=== PATIENT | male | born 1955 | race African-American/Black ===

== ENCOUNTER 2018-08-05 03:56 | Observation (INO) ==
[2018-08-05] MEDS ORDERED: Sod Chloride 0.9% Inj 1,000 ML IV.CONT SCH ×2 (04:15→05:45)
--- NOTE | 2018-08-05 04:22 | ED ---
HPI General Chief Complaint: Altered Mental Status Stated Complaint: Psy Time Seen by Provider: 08/05/18 03:58 Source: patient and EMS Mode of arrival: EMS Limitations: altered mental status History of Present Illness HPI narrative: The patient is a 62-year-old -[place] male who presents to the emergency department via EMS for altered mental status. According to EMS the patient has had increasing altered mental status over the last 4 days. EMS states the patient recently had a medication change, Seroquel, however, they are unsure if the changed occurred several weeks ago or a month ago. According to EMS the patient's heard a sound, when she woke up the patient was lying on the ground, apparently had fallen to the ground according to EMS. The patient did complain of neck pain, therefore, was placed in a cervical collar prior to arrival. The patient is oriented to name and place, but is a poor historian, only answers questions in one-word sentences. He does complain of neck pain but denies any headache. He also complains of lower back pain. The patient denies ingestion of any alcohol or illicit drugs. The patient denies any chest pain, shortness of breath, nausea, vomiting, or abdominal pain. He denies any dysuria. MD complaint: Reports altered mental status, confusion and decreased responsiveness Onset (ago): day(s) Timing confirmed by: spouse Severity: moderate Consistency of symptoms: waxing and waning and getting worse Context: Reports change in medication Associated symptoms: Reports other Treatments prior to arrival: Reports spinal immobilization Related Data Home Medications Medication Instructions Recorded Confirmed quetiapine [Seroquel] 200 mg PO BID 08/05/18 08/05/18 Allergies Allergy/AdvReac Type Severity Reaction Status Date / Time haloperidol Allergy Severe TOUNGE Verified 07/18/18 19:49 JOE Review of Systems ROS: all other systems reviewed are negative [facility] Social History Social History Substance History: No History of Abuse Second Hand Smoke Exposure: No Smoking Status: Former smoker Tobacco Type: Cigarettes How Often Do You Have a Drink Containing Alcohol: Monthly or less Recent Travel in [place] within the Last 8 Weeks: No Recent Out of Country Travel within the Last 8 Weeks: No Immunization History Tetanus Immunization: Unsure Exam Narrative Exam Narrative: GENERAL: Lethargic, eyes closed but opens to voice,, pleasant 62 -year-old male who appears his stated age and is in no acute respiratory distress. SKIN: Focused skin assessment warm/dry. HEAD: Atraumatic. Normocephalic. EYES: Pupils equal and round. 2 mm bilateral and reactive. ENT: No nasal bleeding or discharge. Poor dentition. NECK: Trachea midline. No JVD. Cervical collar in place. CARDIOVASCULAR: Regular rate and rhythm. No murmur appreciated. RESPIRATORY: No accessory muscle use. Clear to auscultation. Breath sounds equal bilaterally. GASTROINTESTINAL: Abdomen soft, non-tender, nondistended. MUSCULOSKELETAL: No obvious deformities. No clubbing. No cyanosis. No edema. Back: No tenderness of the midline of the thoracic spine, however, mild tenderness upon palpation of the mid lumbar spine. No obvious deformity or step -off. NEUROLOGICAL: Lethargic, slow to respond, but opens eyes to voice. Moves all 4 extremities. Oriented to person and place, however, gets the year wrong. Was able to tell me who the president was. PSYCHIATRIC: Appears confused. Course Initial Documented Vital Signs Temperature 98.5 F 08/05/18 04:02 Pulse Rate 80 08/05/18 04:02 Respiratory Rate 20 08/05/18 04:02 Blood Pressure 157/82 H 08/05/18 04:02 Pulse Oximetry 100 08/05/18 04:02 Last Documented Vital Signs Temperature 98.2 F 08/05/18 04:10 Pulse Rate 83 08/05/18 04:10 Respiratory Rate 20 08/05/18 04:10 Blood Pressure 155/80 H 08/05/18 04:10 Pulse Oximetry 100 08/05/18 04:29 Medical Decision Making [facility] Narrative Medical decision making narrative: IV was established, labs are drawn and sent, and the patient was placed on cardiac telemetry monitoring and continuous pulse oximetry monitoring. EKG was ordered and interpreted. CT of the brain and cervical spine were obtained. X-ray of the lumbar spine and chest x-ray were obtained. UA was sent to lab. CT of the brain and cervical spine revealed chronic changes but no acute findings. X-ray of the lumbar spine and chest x- ray are unremarkable. Laboratory evaluation is essentially unremarkable, no obvious reversible cause of the patient's delirium and altered mental status. The patient was reassessed at 5:20 AM, was sleeping, hard to arouse, was unable to ambulate. The patient's symptoms may be secondary to the Seroquel, he will be a 23-hour observation to see if he improves off of the medication. If he does improve at that time he will be able to be discharged. Medical Screen Exam Complete: Yes Emergency Medical Condition: Yes Differential Diagnosis Differential Diagnosis: UTI, subdural hemorrhage, elevated ammonia level, drug ingestion,Differential diagnosis includes medication side effect, delirium, Seroquel side effect, hyponatremia, pneumonia, cervical fracture, lumbar vertebral fracture, encephalitis, meningitis. Lab Data Lab results reviewed: Yes I reviewed the patient's lab results. Result diagrams: 08/05/18 04:20 08/05/18 04:20 Lab Results 08/05/18 08/05/18 08/05/18 Range/Units 04:20 04:20 04:20 WBC 5.2 (4.0-11.0) th/mm3 RBC 3.72 L (4.50-5.90) mil/mm3 Hgb 12.2 L (13.0-17.0) gm/dL Hct 36.3 L (39.0-51.0) % MCV 97.5 (80.0-100.0) fL MCH 32.8 (27.0-34.0) pg MCHC 33.7 (32.0-36.0) % RDW 14.0 (11.6-17.2) % Plt Count 179 (150-450) th/mm3 MPV 8.3 (7.0-11.0) fL Neut % (Auto) 44.4 (16.0-70.0) % Lymph % (Auto) 43.2 (9.0-44.0) % [place] % (Auto) 9.5 H (0.0-8.0) % Eos % (Auto) 2.3 (0.0-4.0) % Baso % (Auto) 0.6 (0.0-2.0) % Neut # (Auto) 2.3 (1.8-7.7) th/mm3 Lymph # (Auto) 2.2 (1.0-4.8) th/mm3 [place] # (Auto) 0.5 (0.0-0.9) th/mm3 Eos # (Auto) 0.1 (0.0-0.4) th/mm3 Baso # (Auto) 0.0 (0.0-0.2) th/mm3 WBC Differential . Differential Comment Auto diff final Sodium 143 (136-145) meq/L Potassium 3.9 (3.5-5.1) meq/L Chloride 108 H (98-107) meq/L Carbon Dioxide 27.4 (21.0-32.0) meq/L Anion Gap 8 (5-15) meq/L BUN 12 (7-18) mg/dL Creatinine 0.94 (0.60-1.30) mg/dL Estimated GFR Greater than 89 (>89) mL/min Random Glucose 115 H (74-106) mg/dL Calcium 8.5 (8.5-10.1) mg/dL Magnesium 2.4 (1.5-2.5) mg/dL Total Bilirubin 0.3 (0.2-1.0) mg/dL AST 16 (15-37) U/L ALT 22 (12-78) U/L Alkaline Phosphatase 64 (45-117) U/L Ammonia 30 (11-32) mcmol/L Total Creatine Kinase 158 (39-308) U/L Troponin I Less than 0.02 L (0.02-0.05) ng/mL Total Protein 6.3 L (6.4-8.2) g/dL Albumin 3.4 (3.4-5.0) g/dL TSH 3.060 (0.358-3.740) uIU/mL Urine Color (Yellw/Straw) Urine Clarity (Clear) Urine pH (5.0-8.5) Ur Specific [place] (1.002-1.035) Urine Protein (Neg-Trace) mg/dL Urine Glucose (UA) (Negative) mg/dL Urine Ketones (Negative) mg/dL Urine Occult Blood (Negative) Urine Nitrate (Negative) Urine Bilirubin (Negative) Urine Urobilinogen (Less than 2) mg/dL Ur Leukocyte Esterase (Negative) Urine RBC (0-3) /hpf Urine WBC (0-5) /hpf Urine Mucus (Occasional) /lpf Micro UA Comment Ur Microscopic Review Urine Culture Comments Urine Opiates Screen (Neg) Ur Barbiturates Screen (Neg) Ur Amphetamines Screen (Neg) U Benzodiazepines Scrn (Neg) Urine Cocaine Screen (Neg) U Cannabinoids Screen (Neg) Serum Alcohol Less than 3 (0-5) mg/dL 08/05/18 08/05/18 Range/Units 04:20 04:20 WBC (4.0-11.0) th/mm3 RBC (4.50-5.90) mil/mm3 Hgb (13.0-17.0) gm/dL Hct (39.0-51.0) % MCV (80.0-100.0) fL MCH (27.0-34.0) pg MCHC (32.0-36.0) % RDW (11.6-17.2) % Plt Count (150-450) th/mm3 MPV (7.0-11.0) fL Neut % (Auto) (16.0-70.0) % Lymph % (Auto) (9.0-44.0) % [place] % (Auto) (0.0-8.0) % Eos % (Auto) (0.0-4.0) % Baso % (Auto) (0.0-2.0) % Neut # (Auto) (1.8-7.7) th/mm3 Lymph # (Auto) (1.0-4.8) th/mm3 [place] # (Auto) (0.0-0.9) th/mm3 Eos # (Auto) (0.0-0.4) th/mm3 Baso # (Auto) (0.0-0.2) th/mm3 WBC Differential Differential Comment Sodium (136-145) meq/L Potassium (3.5-5.1) meq/L Chloride (98-107) meq/L Carbon Dioxide (21.0-32.0) meq/L Anion Gap (5-15) meq/L BUN (7-18) mg/dL Creatinine (0.60-1.30) mg/dL Estimated GFR (>89) mL/min Random Glucose (74-106) mg/dL Calcium (8.5-10.1) mg/dL Magnesium (1.5-2.5) mg/dL Total Bilirubin (0.2-1.0) mg/dL AST (15-37) U/L ALT (12-78) U/L Alkaline Phosphatase (45-117) U/L Ammonia (11-32) mcmol/L Total Creatine Kinase (39-308) U/L Troponin I (0.02-0.05) ng/mL Total Protein (6.4-8.2) g/dL Albumin (3.4-5.0) g/dL TSH (0.358-3.740) uIU/mL Urine Color Yellow (Yellw/Straw) Urine Clarity Clear (Clear) Urine pH 6.0 (5.0-8.5) Ur Specific [place] 1.009 (1.002-1.035) Urine Protein Negative (Neg-Trace) mg/dL Urine Glucose (UA) Negative (Negative) mg/dL Urine Ketones Negative (Negative) mg/dL Urine Occult Blood Small H (Negative) Urine Nitrate Negative (Negative) Urine Bilirubin Negative (Negative) Urine Urobilinogen 2.0 H (Less than 2) mg/dL Ur Leukocyte Esterase Negative (Negative) Urine RBC 1 (0-3) /hpf Urine WBC Less than 1 (0-5) /hpf Urine Mucus Few H (Occasional) /lpf Micro UA Comment Culture not ind Ur Microscopic Review Not Reportable Urine Culture Comments Culture not ind Urine Opiates Screen Neg (Neg) Ur Barbiturates Screen Neg (Neg) Ur Amphetamines Screen Neg (Neg) U Benzodiazepines Scrn Neg (Neg) Urine Cocaine Screen Neg (Neg) U Cannabinoids Screen Neg (Neg) Serum Alcohol (0-5) mg/dL Imaging Data Radiologist's impression: Cervical Spine CT 08/05/18 04:13 CONCLUSION: 1. An acute bony abnormality is not seen. 2. Status post fusion at the C4-C7 levels. 3. Moderate stenosis at the C3-C4 level. 4. Mild stenosis at the C2-C3 level 5. Mild anterior subluxation of C2 on C3. This is likely secondary to facet hypertrophy. Chest X-Ray 08/05/18 04:13 CONCLUSION: No acute cardiopulmonary process. Head CT 08/05/18 04:13 CONCLUSION: 1. No definite acute abnormality seen. 2. The density in the periventricular white matter likely related demyelination. This can be secondary to small vessel ischemic change. . Lumbar Spine X-Ray 08/05/18 04:13 CONCLUSION: Degenerative change. ECG Data EKG Prior to Arrival: No Attestation: I personally reviewed and interpreted this ECG as follows: Interpretation: EKG reveals normal sinus rhythm with a rate of 71. Inverted T wave in lead III. Discharge Plan Discharge Disposition Patient Disposition: 30 Still Patient Discharge Condition Condition: Stable Discharge Details Diagnosis: Altered mental status, Delirium Physicians Team ED Provider: Cesar Massey Primary Care Provider: UNKNOWN, Rxs /Orders / Referrals /Forms Prescriptions: No Action quetiapine [Seroquel] 200 mg Tablet 200 mg PO BID RF: 0 Discharge Interventions Interventions: Vital Signs Last Done: 08/05/18 04:10 Status ED Status: Pending Admission
[2018-08-05 04:29] LABS: Baso % (Auto) 0.6 % (0.0-2.0); Eos # (Auto) 0.1 th/mm3 (0.0-0.4); Eos % (Auto) 2.3 % (0.0-4.0); Hematocrit 36.3 % (39.0-51.0); Hemoglobin 12.2 gm/dL (13.0-17.0); Lymph # (Auto) 2.2 th/mm3 (1.0-4.8); Lymph % (Auto) 43.2 % (9.0-44.0); Mean Corpuscular HGB Conc 33.7 % (32.0-36.0); Mean Corpuscular Hemoglobin 32.8 pg (27.0-34.0); Mean Corpuscular Volume 97.5 fL (80.0-100.0); Mean Platelet Volume 8.3 fL (7.0-11.0); Mono # (Auto) 0.5 th/mm3 (0.0-0.9); Mono % (Auto) 9.5 % (0.0-8.0); Neut # (Auto) 2.3 th/mm3 (1.8-7.7); Neut % (Auto) 44.4 % (16.0-70.0); Platelet Count 179 th/mm3 (150-450); Red Blood Count 3.72 mil/mm3 (4.50-5.90); White Blood Count 5.2 th/mm3 (4.0-11.0)
[2018-08-05 04:37] LABS: Bilirubin,Urine Negative (Negative); Clarity,Urine Clear (Clear); Color,Urine Yellow (Yellw/Straw); Glucose,Urine (UA) Negative (Negative); Leukocyte Esterase,Urine Negative (Negative); Mucus,Urine Few /lpf (Occasional); Nitrite,Urine Negative (Negative); Specific Gravity,Urine 1.009 (1.002-1.035)
[2018-08-05 04:39] LABS: Amphetamine Screen,Urine Neg (Neg); Barbiturate Screen,Urine Neg (Neg); Cannabinoid Screen,Urine Neg (Neg); Cocaine Screen,Urine Neg (Neg)
[2018-08-05 04:47] LABS: Opiate Screen,Urine Neg (Neg)
[2018-08-05 04:50] LABS: Alanine Aminotransferase 22 U/L (12-78); Albumin 3.4 g/dL (3.4-5.0); Anion Gap 8 meq/L (5-15); Aspartate Aminotransferase 16 U/L (15-37); Blood Urea Nitrogen 12 mg/dL (7-18); Calcium 8.5 mg/dL (8.5-10.1); Carbon Dioxide 27.4 meq/L (21.0-32.0); Chloride 108 meq/L (98-107); Glomerular Filtration Rate Greater Than 89 mL/min (>89); Glucose,Random 115 mg/dL (74-106); Magnesium 2.4 mg/dL (1.5-2.5); Potassium 3.9 meq/L (3.5-5.1); Sodium 143 meq/L (136-145)
--- NOTE | 2018-08-05 04:54 | XR ---
EXAM DATE: 08/05/2018 4:13 AM EDT AGE/SEX: 62 years / Male INDICATIONS: Cough. CLINICAL DATA: This is the patient's initial encounter. Patient reports that signs and symptoms have been present for 1 day and indicates a pain score of 0/10. MEDICAL/SURGICAL HISTORY: None. None. COMPARISON: . FINDINGS: A single AP view of the chest demonstrates the lungs to be symmetrically aerated without evidence of mass, infiltrate or effusion. The cardiomediastinal contours are unremarkable. Osseous structures a re intact. There is an anterior cervical fusion plate present. CONCLUSION: No acute cardiopulmonary process. Electronically signed by: Aashish Mejía MD 08/05/2018 4:52 AM EDT
--- NOTE | 2018-08-05 04:55 | XR ---
EXAM DATE: 08/05/2018 4:13 AM EDT AGE/SEX: 62 years / Male INDICATIONS: Post fall, back pain. CLINICAL DATA: This is the patient's initial encounter. Patient reports that signs and symptoms have been present for 1 day and indicates a pain score of Nonresponsive. MEDICAL/SURGICAL HISTORY: None. Fusion, cervical. COMPARISON: No prior exams available for comparison. FINDINGS: The lumbar vertebral bodies are normal in height. They're normally aligned in the sagittal plane. The re is a minimal levocurvature of the lower lumbar spine. There are marginal osteophyte seen throughou t. There is minimal disc space narrowing at the right side of the L4-L5 disc level. The remaining dis c spaces appear normal height. There is facet hypertrophy at the L4-L5 and L5-S1 levels. The sacroili ac joints are intact. CONCLUSION: Degenerative change. Electronically signed by: Aashish Mejía MD 08/05/2018 4:53 AM EDT
[2018-08-05 05:00] LABS: Alkaline Phosphatase 64 U/L (45-117); Creatine Kinase 158 U/L (39-308); Total Protein 6.3 g/dL (6.4-8.2)
--- NOTE | 2018-08-05 05:02 | CT ---
EXAM DATE: 08/05/2018 4:16 AM EDT AGE/SEX: 62 years / Male INDICATIONS: Fall. Altered mental status. CLINICAL DATA: This is the patient's initial encounter. Patient reports that signs and symptoms have been present for 1 day and indicates a pain score of 5/10. MEDICAL/SURGICAL HISTORY: None. Fusion, cervical. RADIATION DOSE: 20.96 CTDI (mGy) COMPARISON: No prior exams available for comparison. TECHNIQUE: Contiguous axial images were obtained using helical multirow detector technique. The vol umetric data was post-processed with multiplanar reconstruction in oblique axial, sagittal, and coron al planes. Using automated exposure control and adjustment of the mA and/or kV according to patient s ize, radiation dose was kept as low as reasonably achievable to obtain optimal diagnostic quality hebert ges. DICOM format image data is available electronically for review and comparison. FINDINGS: Vertebrae: There is been fusion at the C4-C7 vertebral body levels. There is an anterior cervical fu stephanie plate extending from C4 through C7. There is near-complete bony fusion at the C4-C5, C5-C6 and C 6-C7 disc levels. There is some possible fusion at the facet joints at these levels. There is calcifi cation/ossification of ligamentum nuchae. Alignment: There is mild anterior subluxation of C2 on C3 in the order of 3 to 4 mm. C2-3: Again noted is the anterior subluxation of C2 on C3.The disc maintains its alignment with the superior aspect of C3 creating a bulge like configuration. There is mild narrowing of the thecal sac. The posterior disc margin appears intact. There is moderate facet hypertrophy being worse on the rig ht. The neural foramina are grossly patent. C3-4: The disc demonstrates loss of height. There is diffuse disc bulge causing a moderate impressio n on thecal sac. Prominent anterior marginal osteophytes are seen. There is uncovertebral hypertrophy . There is bilateral facet hypertrophy. There is narrowing of the neural foramina bilaterally. C4-5: The patient is status post fusion at this level. A significant impression on thecal sac is not seen. The neural foramina are patent bilaterally. C5-6: The patient is status post fusion at this level. A significant impression on thecal sac is not seen. The neural foramina are patent bilaterally. C6-7: The patient is status post fusion at this level. A significant impression on thecal sac is not seen. The neural foramina are patent bilaterally. C7-T1: The bony spinal canal is normal in size. No evidence of disc bulge or herniation. The neura l foramina are bilaterally patent. CONCLUSION: 1. An acute bony abnormality is not seen. 2. Status post fusion at the C4-C7 levels. 3. Moderate stenosis at the C3-C4 level. 4. Mild stenosis at the C2-C3 level 5. Mild anterior subluxation of C2 on C3. This is likely secondary to facet hypertrophy. Electronically signed by: Aashish Mejía MD 08/05/2018 5:00 AM EDT
--- NOTE | 2018-08-05 05:06 | CT ---
EXAM DATE: 08/05/2018 4:16 AM EDT AGE/SEX: 62 years / Male INDICATIONS: Fall. Altered mental status. CLINICAL DATA: This is the patient's initial encounter. Patient reports that signs and symptoms have been present for 1 day and indicates a pain score of 5/10. MEDICAL/SURGICAL HISTORY: None. Fusion, cervical. RADIATION DOSE: 66.34 CTDI (mGy) COMPARISON: No prior exams available for comparison. TECHNIQUE: CT of the head without contrast. Using automated exposure control and adjustment of the mA and/or kV according to patient size, radiation dose was kept as low as reasonably achievable to ob tain optimal diagnostic quality images. DICOM format image data is available electronically for revi ew and comparison. FINDINGS: Cerebrum: The ventricles are normal for age. There is low density in the periventricular white laney er being most around the frontal horn of the left lateral ventricle. No evidence of midline shift, ma ss lesion, hemorrhage or acute infarction. No extraaxial fluid collections are seen. Posterior Fossa: The cerebellum and brainstem are intact. The 4th ventricle is midline. The cerebe llopontine angle is unremarkable. Extracranial: The visualized portion of the orbits is intact. There is a 1.5 cm bony density seen in the posterior right ethmoid sinus region likely related to an osteoma. Skull: The calvaria is intact. No evidence of skull fracture. CONCLUSION: 1. No definite acute abnormality seen. 2. The density in the periventricular white matter likely related demyelination. This can be seconda ry to small vessel ischemic change. . Electronically signed by: Aashish Mejía MD 08/05/2018 5:04 AM EDT
[2018-08-05] MEDS ORDERED: Bisacodyl 10 MG Supp RECTAL PRN (05:41)
[2018-08-05] MEDS ORDERED: Acetaminophen 325 MG Tablet PO PRN (05:41)
[2018-08-05] MEDS ORDERED: Sodium Chloride 0.9% 2 ML Flush PRN IV.FLUSH (05:53)
[2018-08-05] MEDS ORDERED: Heparin - SQ 10,000 UNITS/ML Vial SQ SCH (06:00)
--- NOTE | 2018-08-05 08:06 | P.HP ---
History of Present Illness Service: Hospitalist Primary Care Physician: UNKNOWN History of Present Illness: Mr. Massey is a 62-year-old -[place] male presents to the emergency department due to altered mental status that has been worsening over the last 4 days. Patient also had a fall at home. He denies any chest pain, shortness of breath, fever or chills. He denies any lightheadedness or dizziness prior to his fall. He takes Seroquel 200 mg twice a day. He attributes his fall to too much Seroquel. At the time of this interview on 08/05/2018, patient is ambulating well. He is alert oriented x3. He would like to go home. He denies any acute concerns. He denies any changes in bowel or bladder habits. No cough, abdominal pain. Past medical history: Bipolar disorder. Past surgical history: No significant past surgeries. Social history: Patient smokes cigarettes. He is trying to quit but finds it hard to do. Family history: Mother had hypertension and father had heart attack. Review of Systems All other systems reviewed negative except as stated in [facility] - History History Provided By: Patient - Medical History Medical History: Medical History (Last Reviewed 08/05/18 @ 04:06 by Syl White) Bipolar disorder - Tobacco History Second Hand Smoke Exposure: No Smoking Status: Former smoker Tobacco Type: Cigarettes - Alcohol History How Often Do You Have a Drink Containing Alcohol: Monthly or less - Substance Use History Substance History: No History of Abuse - Travel History Recent Travel in the [place] Within the Last 8 Weeks: No Recent Travel Out of the Country Within the Last 8 Weeks: No - Immunization History Tetanus Immunization: Unsure Medications and Allergies Active Medications: Active Medications Acetaminophen (Tylenol) 650 mg PO Q4H PRN PRN Reason: Temp > 100.4 Al Hydroxide/Mg Hydroxide (Milk Of Magnesia Liq) 30 ml PO Q12H PRN PRN Reason: Mild Constipation Bisacodyl (Dulcolax Supp) 10 mg RECTAL DAILY PRN PRN Reason: SEVERE CONSITIPATION Heparin Sodium (Porcine) (Heparin Inj) 5,000 units SQ Q8H [facility] Last Admin: 08/05/18 06:01 Dose: 5,000 units Sodium Chloride (Ns Inj) 1,000 mls @ 100 mls/hr IV.CONT .Q10H [facility] Last Admin: 08/05/18 06:00 Dose: 100 mls/hr Lactulose (Lactulose Liq) 30 ml PO DAILY PRN PRN Reason: SEVERE CONSITIPATION Ondansetron HCl (Zofran Inj) 4 mg IV.PUSH Q6H PRN PRN Reason: NAUSEA OR VOMITING Senna/Docusate Sodium (Dorothy-Colace) 1 tab PO BID [facility] Sennosides (Senokot) 17.2 mg PO Q12H PRN PRN Reason: Moderate Constipation Sodium Chloride (Ns Flush) 2 ml IV.FLUSH BID [facility] Sodium Chloride (Ns Flush) 2 ml IV.FLUSH PRN PRN PRN Reason: FLUSH AFTER USING IV ACCESS Allergies Allergy/AdvReac Type Severity Reaction Status Date / Time haloperidol Allergy Severe TOUNGE Verified 07/18/18 19:49 [facility] Home Medications Medication Instructions Recorded Confirmed Type quetiapine [Seroquel] 200 mg PO BID 08/05/18 08/05/18 History Exam Vital signs: Vital Signs 08/05/18 04:02 08/05/18 04:10 08/05/18 04:29 Temperature 98.5 F 98.2 F Pulse Rate 80 83 Respiratory Rate 20 20 Blood Pressure 157/82 H 155/80 H Pulse Oximetry 100 100 100 08/05/18 06:02 Temperature Pulse Rate 85 Respiratory Rate Blood Pressure Pulse Oximetry Intake & Output 08/04/18 08/05/18 08/05/18 18:59 06:59 18:59 Intake Total 300 / 300 Balance 300 / 300 Weight 79.379 kg Intake: IV 300 / 300 NS Inj 1,000 ML @ 125 mls/hr IV 300 / 300 .CONT .Q8H [facility] Rx#:[id number] Narrative: GENERAL: This is a well-nourished, well-developed patient, in no apparent distress. Oriented to person, place, month and year. Knows the name of the current and previous president. SKIN: No rashes, ecchymoses or lesions. Warm and dry. HEAD: Atraumatic. Normocephalic. No temporal or scalp tenderness. EYES: Pupils equal round and reactive. No injection or drainage. ENT: Nose without bleeding, purulent drainage or septal hematoma. Airway patent. NECK: Trachea midline. No lymphadenopathy. Supple, nontender, no meningeal signs. CARDIOVASCULAR: Regular rate and rhythm without murmurs, gallops, or rubs. No JVD. RESPIRATORY: Clear to auscultation. Breath sounds equal bilaterally. No wheezes , rales, or rhonchi. GASTROINTESTINAL: Abdomen soft, non-tender, nondistended. No guarding. MUSCULOSKELETAL: Extremities without clubbing, cyanosis, or edema. NEUROLOGICAL: Awake and alert. Cranial nerves II through XII intact. No focal neurological deficits. Normal speech. Results - Labs CBC & Chem 7: 08/05/18 04:20 08/05/18 04:20 Labs: Laboratory Results - last 24 hr 08/05/18 08/05/18 08/05/18 04:20 04:20 04:20 WBC 5.2 RBC 3.72 L Hgb 12.2 L Hct 36.3 L MCV 97.5 MCH 32.8 MCHC 33.7 RDW 14.0 Plt Count 179 MPV 8.3 Neut % (Auto) 44.4 Lymph % (Auto) 43.2 Dickenson % (Auto) 9.5 H Eos % (Auto) 2.3 Baso % (Auto) 0.6 Neut # (Auto) 2.3 Lymph # (Auto) 2.2 Dickenson # (Auto) 0.5 Eos # (Auto) 0.1 Baso # (Auto) 0.0 WBC Differential . Differential Comment Auto diff final Sodium 143 Potassium 3.9 Chloride 108 H Carbon Dioxide 27.4 Anion Gap 8 BUN 12 Creatinine 0.94 Estimated GFR Greater than 89 Random Glucose 115 H Calcium 8.5 Magnesium 2.4 Total Bilirubin 0.3 AST 16 ALT 22 Alkaline Phosphatase 64 Ammonia 30 Total Creatine Kinase 158 Troponin I Less than 0.02 L Total Protein 6.3 L Albumin 3.4 TSH 3.060 Urine Color Urine Clarity Urine pH Ur Specific Cl[place] Urine Protein Urine Glucose (UA) Urine Ketones Urine Occult Blood Urine Nitrate Urine Bilirubin Urine Urobilinogen Ur Leukocyte Esterase Urine RBC Urine WBC Urine Mucus Micro UA Comment Ur Microscopic Review Urine Culture Comments Urine Opiates Screen Ur Barbiturates Screen Ur Amphetamines Screen U Benzodiazepines Scrn Urine Cocaine Screen U Cannabinoids Screen Serum Alcohol Less than 3 08/05/18 08/05/18 04:20 04:20 WBC RBC Hgb Hct MCV MCH MCHC RDW Plt Count MPV Neut % (Auto) Lymph % (Auto) Dickenson % (Auto) Eos % (Auto) Baso % (Auto) Neut # (Auto) Lymph # (Auto) Dickenson # (Auto) Eos # (Auto) Baso # (Auto) WBC Differential Differential Comment Sodium Potassium Chloride Carbon Dioxide Anion Gap BUN Creatinine Estimated GFR Random Glucose Calcium Magnesium Total Bilirubin AST ALT Alkaline Phosphatase Ammonia Total Creatine Kinase Troponin I Total Protein Albumin TSH Urine Color Yellow Urine Clarity Clear Urine pH 6.0 Ur Specific [place] 1.009 Urine Protein Negative Urine Glucose (UA) Negative Urine Ketones Negative Urine Occult Blood Small H Urine Nitrate Negative Urine Bilirubin Negative Urine Urobilinogen 2.0 H Ur Leukocyte Esterase Negative Urine RBC 1 Urine WBC Less than 1 Urine Mucus Few H Micro UA Comment Culture not ind Ur Microscopic Review Not Reportable Urine Culture Comments Culture not ind Urine Opiates Screen Neg Ur Barbiturates Screen Neg Ur Amphetamines Screen Neg U Benzodiazepines Scrn Neg Urine Cocaine Screen Neg U Cannabinoids Screen Neg Serum Alcohol - Imaging Cervical Spine CT 08/05/18 04:13 CONCLUSION: 1. An acute bony abnormality is not seen. 2. Status post fusion at the C4-C7 levels. 3. Moderate stenosis at the C3-C4 level. 4. Mild stenosis at the C2-C3 level 5. Mild anterior subluxation of C2 on C3. This is likely secondary to facet hypertrophy. Chest X-Ray 08/05/18 04:13 CONCLUSION: No acute cardiopulmonary process. Head CT 08/05/18 04:13 CONCLUSION: 1. No definite acute abnormality seen. 2. The density in the periventricular white matter likely related demyelination. This can be secondary to small vessel ischemic change. Lumbar Spine X-Ray 08/05/18 04:13 CONCLUSION: Degenerative change. Caprini VTE Risk Assessment Caprini VTE Risk Assessment: No/Low Risk (score <= 1) Caprini Risk Assessment Model: Point Value = 1 Point Value = 2 Point Value = 3 Point Value = 5 Age 41-60 Minor surgery BMI > 25 kg/m2 Swollen legs Varicose veins or History of unexplained or recurrent spontaneous Oral contraceptives or hormone replacement Sepsis (< 1 month) Serious lung disease, including pneumonia (< 1 month) Abnormal pulmonary function Acute myocardial infarction Congestive heart failure (< 1 month) History of inflammatory bowel disease Medical patient at bed rest Age 61-74 Arthroscopic surgery Major open surgery (> 45 min) Laparoscopic surgery (> 45 min) Malignancy Confined to bed (> 72 hours) Immobilizing plaster cast Central venous access Age >= 75 History of VTE Family history of VTE Factor V Leiden Prothrombin [id number] Lupus anticoagulant Anticardiolipin antibodies Elevated serum homocysteine Heparin-induced thrombocytopenia Other congenital or acquired thrombophilia Stroke (< 1 month) Elective arthroplasty Hip, pelvis, or leg fracture Acute spinal cord injury (< 1 month) Prophylaxis Regimen: Total Risk Factor Score Risk Level Prophylaxis Regimen 0-1 Low Early ambulation 2 Moderate Order ONE of the following: *Sequential Compression Device (SCD) *Heparin 5000 units SQ BID 3-4 Higher Order ONE of the following medications: *Heparin 5000 units SQ TID *Enoxaparin/Lovenox 40 mg SQ daily (WT < 150 kg, CrCl > 30 mL/min) *Enoxaparin/Lovenox 30 mg SQ daily (WT < 150 kg, CrCl > 10-29 mL/min) *Enoxaparin/Lovenox 30 mg SQ BID (WT < 150 kg, CrCl > 30 mL/min) AND/OR *Sequential Compression Device (SCD) 5 or more Highest Order ONE of the following medications: *Heparin 5000 units SQ TID (Preferred with Epidurals) *Enoxaparin/Lovenox 40 mg SQ daily (WT < 150 kg, CrCl > 30 mL/min) *Enoxaparin/Lovenox 30 mg SQ daily (WT < 150 kg, CrCl > 10-29 mL/min) *Enoxaparin/Lovenox 30 mg SQ BID (WT < 150 kg, CrCl > 30 mL/min) AND *Sequential Compression Device (SCD) Assessment and Plan - Plan Mr. Massey is a pleasant 62-year-old -H[place]ian male with a history of bipolar disorder on Seroquel who presents to the emergency department on 2017 due to altered mental status and a fall. Patient attributes his problems to too much Seroquel. Patient is currently alert, oriented x3, ambulating well. He does not have any chest pain, shortness of breath, lightheadedness or dizziness. He would like to go home. Acute transient delirium Fall History of bipolar disorder -Likely due to Seroquel 200 mg twice daily. -It would be reasonable to cut down Seroquel 200 mg twice daily. -Patient is encouraged to follow-up with his psychiatrist and/or primary care physician. Full code. Ambulation. Discharge patient to home Condition on discharge: Improved Regular Diet as tolerated Ad Lu activity Rx written: Change Seroquel dosing from 200 mg twice daily to 100 mg twice daily Follow-up with primary care physician within 1-2 weeks
[2018-08-05] MEDS ORDERED: Senna/Docusate Sodium 8.6/50 MG Tablet PO SCH (09:00)
[2018-08-05] MEDS ORDERED: Sodium Chloride 0.9% 2 ML Flush BID IV.FLUSH SCH (09:00)
--- NOTE | 2018-08-05 09:52 | ECG ---
Date Performed: 08/05/2018 Time Performed: 04:04:16 PTAGE: 62 years EKG: Sinus rhythm NORMAL ECG NO PREVIOUS TRACING DOCTOR: Alessandro Beverly Interpretating Date/Time 08/05/2018 09:50:15
== END 2018-08-05 13:44 | disposition home or self-care (01) ==
LOC: NEDA 03:56 → NEPE 03:56 → NEDA 09:40 → NEPGCP 09:55
PROVIDERS: ADMIT Hospitalist; ATTEND Hospitalist
DX: Z82.49 Family history of ischemic heart disease and other diseases of the circulatory system; R41.82 Altered mental status, unspecified; F17.210 Nicotine dependence, cigarettes, uncomplicated; W19.XXXA Unspecified fall, initial encounter; M54.2 Cervicalgia; F31.9 Bipolar disorder, unspecified; Y92.009 Unspecified place in unspecified non-institutional (private) residence as the place of occurrence of the external cause; M54.5 Low back pain

== ENCOUNTER 2018-08-24 12:02 | Inpatient (IN) ==
[2018-08-24 13:46] LABS: Baso % (Auto) 0.2 % (0.0-2.0); Eos % (Auto) 0.1 % (0.0-4.0); Hematocrit 40.2 % (39.0-51.0); Hemoglobin 13.5 gm/dL (13.0-17.0); Lymph # (Auto) 0.8 th/mm3 (1.0-4.8); Lymph % (Auto) 25.6 % (9.0-44.0); Mean Corpuscular HGB Conc 33.5 % (32.0-36.0); Mean Corpuscular Hemoglobin 33.3 pg (27.0-34.0); Mean Corpuscular Volume 99.3 fL (80.0-100.0); Mean Platelet Volume 8.5 fL (7.0-11.0); Mono # (Auto) 0.2 th/mm3 (0.0-0.9); Mono % (Auto) 5.2 % (0.0-8.0); Neut # (Auto) 2.1 th/mm3 (1.8-7.7); Neut % (Auto) 68.9 % (16.0-70.0); Platelet Count 206 th/mm3 (150-450); Red Blood Count 4.05 mil/mm3 (4.50-5.90); White Blood Count 3.1 th/mm3 (4.0-11.0)
[2018-08-24 13:58] LABS: Alanine Aminotransferase 22 U/L (12-78); Anion Gap 9 meq/L (5-15); Aspartate Aminotransferase 21 U/L (15-37); Blood Urea Nitrogen 12 mg/dL (7-18); Calcium 9.4 mg/dL (8.5-10.1); Carbon Dioxide 24.7 meq/L (21.0-32.0); Chloride 109 meq/L (98-107); Glomerular Filtration Rate Greater Than 89 mL/min (>89); Glucose,Random 128 mg/dL (74-106); Magnesium 2.4 mg/dL (1.5-2.5); Potassium 4.6 meq/L (3.5-5.1); Sodium 143 meq/L (136-145)
[2018-08-24 14:07] LABS: Alkaline Phosphatase 73 U/L (45-117); Thyroid Stimulating Hormone 0.918 uIU/mL (0.358-3.740); Total Protein 7.6 g/dL (6.4-8.2)
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
[2018-08-24 16:57] LABS: Amphetamine Screen,Urine Neg (Neg); Barbiturate Screen,Urine Neg (Neg); Cannabinoid Screen,Urine Pos (Neg); Cocaine Screen,Urine Neg (Neg)
[2018-08-24 17:06] LABS: Opiate Screen,Urine Neg (Neg)
[2018-08-24] MEDS ORDERED: Bisacodyl 10 MG Supp RECTAL PRN (17:49)
[2018-08-24] MEDS ORDERED: Aluminum/Magnesium/Simethacone Susp 30 ML UDC PO PRN (17:49)
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
[2018-08-25 07:29] LABS: Calcium 9.3 mg/dL (8.5-10.1); Carbon Dioxide 29.5 meq/L (21.0-32.0); Potassium 5.1 meq/L (3.5-5.1)
[2018-08-25 07:32] LABS: Chol/HDL Ratio 2.47 Ratio; HDL Cholesterol 59.4 mg/dL (40.0-60.0)
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
[2018-08-25 14:44] LABS: Creatine Kinase 161 U/L (39-308)
[2018-08-25 14:46] LABS: Baso % (Auto) 0.6 % (0.0-2.0); Eos # (Auto) 0.1 th/mm3 (0.0-0.4); Eos % (Auto) 1.4 % (0.0-4.0); Hematocrit 40.2 % (39.0-51.0); Hemoglobin 13.3 gm/dL (13.0-17.0); Lymph # (Auto) 1.3 th/mm3 (1.0-4.8); Lymph % (Auto) 33.6 % (9.0-44.0); Mean Corpuscular HGB Conc 33.1 % (32.0-36.0); Mean Corpuscular Volume 99.8 fL (80.0-100.0); Mean Platelet Volume 8.9 fL (7.0-11.0); Mono # (Auto) 0.5 th/mm3 (0.0-0.9); Mono % (Auto) 12.2 % (0.0-8.0); Neut # (Auto) 2.1 th/mm3 (1.8-7.7); Neut % (Auto) 52.2 % (16.0-70.0); Platelet Count 178 th/mm3 (150-450); Red Blood Count 4.03 mil/mm3 (4.50-5.90); Red Cell Distribution Width 13.9 % (11.6-17.2)
[2018-08-25 15:04] LABS: Creatine Kinase MB 3.7 ng/mL (0.5-3.6)
[2018-08-25 15:31] LABS: Acanthocytes 1+; Platelet Estimate Normal (Normal); Platelet Morphology Normal (Normal); Toxic Vacuolation Present
--- NOTE | 2018-08-25 17:54 | XR ---
EXAM DATE: 08/25/2018 5:51 PM EST AGE/SEX: 62 years / Male INDICATIONS: Chest pain. CLINICAL DATA: This is the patient's initial encounter. Patient reports that signs and symptoms have been present for 1 day and indicates a pain score of 0/10. MEDICAL/SURGICAL HISTORY: . Adjustment disorder with depression. . Fusion, cervical. Right kn ee surgery. [place] [facility] [place]. . FINDINGS: A single AP view of the chest demonstrates the lungs to be symmetrically aerated without evidence of mass, infiltrate or effusion. The cardiomediastinal contours are unremarkable. Osseous structures a re intact. CONCLUSION: Negative examination. Electronically signed by: Kvng Aaron MD 08/25/2018 5:53 PM EST
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
[2018-08-25 18:24] LABS: Creatine Kinase 180 U/L (39-308)
[2018-08-25 18:53] LABS: Hemoglobin A1c 5.4 % (4.3-6.0)
--- NOTE | 2018-08-25 20:42 | CT ---
EXAM DATE: 08/25/2018 8:35 PM EST AGE/SEX: 62 years / Male INDICATIONS: Trauma, fall two weeks ago. CLINICAL DATA: This is the patient's initial encounter. Patient reports that signs and symptoms have been present for 2 weeks and indicates a pain score of 5/10. MEDICAL/SURGICAL HISTORY: None. None. RADIATION DOSE: 56.35 CTDI (mGy) COMPARISON: [facility] – [place], [place] HEAD W/O CONTRAST, 08/05/2018. . TECHNIQUE: CT of the head without contrast. Using automated exposure control and adjustment of the mA and/or kV according to patient size, radiation dose was kept as low as reasonably achievable to ob tain optimal diagnostic quality images. DICOM format image data is available electronically for revi ew and comparison. FINDINGS: Cerebrum: Bilateral periventricular low attenuation change involving both cerebral hemispheres is st able from the prior exam. The ventricles are normal for age. No evidence of midline shift, mass lesi on, hemorrhage or acute infarction. No extraaxial fluid collections are seen. Posterior Fossa: The cerebellum and brainstem are intact. The 4th ventricle is midline. The cerebe llopontine angle is unremarkable. Extracranial: The visualized portion of the orbits is intact. Skull: The calvaria is intact. No evidence of skull fracture. CONCLUSION: 1. No acute intracranial abnormality. 2. Chronic small vessel ischemic change. . Electronically signed by: Stef Grier MD 08/25/2018 8:41 PM EST
[2018-08-26 03:45] LABS: Creatine Kinase 173 U/L (39-308)
--- NOTE | 2018-08-26 08:44 | P.PNPSY ---
Subjective Chief Complaint: Nano Remarks: Patient seen and examined with nurse. Chart reviewed. Case discussed with nursing staff who reports that patient continues to sing and dance about the unit and is for this reason fairly disruptive to the milieu. On my exam, patient is essentially unchanged today from yesterday. Christianity delusions persist, and he again greets us with a prolonged handshake and lengthy prayer. Mood is elevated and affect expansive. Patient is more willing to engage in discussion of medication treatment options. No physical complaints; in particular no c/o CP, SOB. Vital Signs Temp Pulse Resp BP Pulse Ox 08/26/18 08:22 100 08/26/18 06:03 97.7 F 92 H 18 144/65 H 100 08/26/18 05:52 97.7 F 92 H 18 144/65 H 100 08/25/18 21:39 98.5 F 80 17 130/68 98 08/25/18 16:38 98.2 F 74 18 133/71 100 Intake and Output 08/25/18 08/26/18 08/26/18 22:59 06:59 14:59 Other: Date of Last Bowel Movement 08/25/18 08/25/18 Laboratory Results - last 24 hr 08/25/18 08/25/18 08/25/18 06:20 06:20 06:28 WBC 4.0 RBC 4.03 L Hgb 13.3 Hct 40.2 MCV 99.8 MCH 33.0 MCHC 33.1 RDW 13.9 Plt Count 178 MPV 8.9 Prelim Diff (Auto) Slide review pending Neut % (Auto) 52.2 Lymph % (Auto) 33.6 [place] % (Auto) 12.2 H Eos % (Auto) 1.4 Baso % (Auto) 0.6 Neut # (Auto) 2.1 Lymph # (Auto) 1.3 [place] # (Auto) 0.5 Eos # (Auto) 0.1 Baso # (Auto) 0.0 WBC Differential . Diff Scan Auto diff confirmed Differential Comment . Toxic Vacuolation Present H Platelet Estimate Normal Platelet Morphology Normal Acanthocytes (Spur) 1+ H Hemoglobin A1c 5.4 Total Creatine Kinase 161 CK-MB (CK-2) 3.7 H Troponin I 08/25/18 08/26/18 08/26/18 17:51 02:35 10:50 WBC RBC Hgb Hct MCV MCH MCHC RDW Plt Count MPV Prelim Diff (Auto) Neut % (Auto) Lymph % (Auto) [place] % (Auto) Eos % (Auto) Baso % (Auto) Neut # (Auto) Lymph # (Auto) [place] # (Auto) Eos # (Auto) Baso # (Auto) WBC Differential Diff Scan Differential Comment Toxic Vacuolation Platelet Estimate Platelet Morphology Acanthocytes (Spur) Hemoglobin A1c Total Creatine Kinase 180 173 148 CK-MB (CK-2) 4.0 H 3.0 3.5 Troponin I Less than 0.02 L Less than 0.02 L Less than 0.02 L labs reviewed. Serial EKGs reviewed; most recent EKG read as NSR with QTc 387ms , not prolonged. Impressions Head CT 08/25/18 00:00 CONCLUSION: 1. No acute intracranial abnormality. 2. Chronic small vessel ischemic change. . Chest X-Ray 08/25/18 17:21 CONCLUSION: Negative examination. Review of Systems All other systems reviewed negative except as stated in HPI (Limitation: poor historian) Mental Status Examination Appearance: Other (Fair) Consciousness: Alert Orientation: Person, Place (At least) Motor Activity: Normal gait Speech: Rapid Language: Other (Rambling) Fund of Knowledge: Adequate Attention and Concentration: Easily distracted Memory: Unremarkable Mood: Other (Remains elevated) Affect: Other (Expansive) Thought Process & Associations: Loose associations Thought Content: Delusional Hallucination Type: None Delusion Type: Other (Christianity) Suicidal Ideation: No Homicidal Ideation: No Insight: Poor Judgment: Poor (And impulsive) Assessment and Plan - Assessment (1) Bipolar affective disorder, currently manic, severe, with psychotic features Code(s): F31.2 - Bipolar disorder, current episode manic severe with psychotic features Status: Acute (2) Marijuana use Code(s): F12.90 - Cannabis use, unspecified, uncomplicated Status: Acute - Plan Plan: Patient is more willing and able to negotiate treatment today, 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 We discuss pharmacotherapeutic options for management of nano. He did not like the sedating effect of Seroquel, and so we settle on a trial of Abilify. R/B/A for medications discussed with patient including the motor and metabolic side effects of antipsychotic therapy. Start Abilify 15mg daily for nano. Hospitalist input noted and appreciated. Continue to monitor on high acuity unit. Continue other medications and care as ordered. Justification for Continued Inpatient Stay: Med changes. Impairment in reality construction. High risk for decompensation in less restrictive setting. Discharge Planning: Pending psychiatric stabilization. Request Healthcare Surrogate/Guardian Advocate?: Yes
[2018-08-26] MEDS ORDERED: Aspirin 325 MG Tablet PO SCH (09:00)
[2018-08-26 11:39] LABS: Creatine Kinase 148 U/L (39-308)
--- NOTE | 2018-08-26 11:40 | ECG ---
Date Performed: 08/25/2018 Time Performed: 20:42:30 PTAGE: 62 years EKG: Sinus rhythm NORMAL ECG PREVIOUS TRACING : 08/25/2018 17.29 DOCTOR: Chevy Manzo Interpretating Date/Time 08/26/2018 11:38:18
[2018-08-26 11:51] LABS: Creatine Kinase MB 3.5 ng/mL (0.5-3.6)
--- NOTE | 2018-08-26 12:33 | ECG ---
Date Performed: 08/25/2018 Time Performed: 17:29:53 PTAGE: 62 years EKG: Sinus rhythm NORMAL ECG PREVIOUS TRACING : 08/25/2018 13.39 DOCTOR: Chevy Manzo Interpretating Date/Time 08/26/2018 12:31:48
--- NOTE | 2018-08-26 12:44 | ECG ---
Date Performed: 08/25/2018 Time Performed: 13:39:19 PTAGE: 62 years EKG: Sinus rhythm MODERATE T-WAVE ABNORMALITY, CONSIDER ANTERIOR ISCHEMIA ABNORMAL ECG PREVIOUS TRACING : 08/05/2018 04.04 DOCTOR: Chevy Manzo Interpretating Date/Time 08/26/2018 12:42:01
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
[2018-08-27] MEDS: Acetaminophen 325 MG Tablet PO PRN ×2 (04:56→20:18)
[2018-08-27] MEDS: amLODIPine 5 MG Tablet PO SCH (08:50)
--- NOTE | 2018-08-27 09:07 | P.CONPSY ---
Provisional Diagnosis Admission Date: August 24, 2018 18:04 [place] I.: 1. Bipolar disorder, presently manic, severe with psychotic features 2. Cannabis use, rule out use disorder [place] II.: Deferred History of Present Illness Service: Psychiatry Consult date: 08/27/18 Requesting Physician: Regis Hadley Reason for Consult: Second opinion petition supporting Last act Primary Care Provider: No Primary Care Physician Chief Complaint: "I'm okay, I am concerned about my gf" History of Present Illness: Patient is 62-year-old Afro-[place]an male admitted to Dr. Hadley service under the Last act. Dr. Hadley initial psych eval reviewed and agreed with. He has signed first opinion petition supporting Last act. Patient seen by me with nurse less in day room. He is an alert quite manic he male with rapid pressured speech marked grandiosity with spiritual type delusions. With little insight into his disease. At this time I feel patient does meet criteria for further hospitalization under the Last act. I agree with Dr. Hadley thus I will cosign second opinion petition supporting Last act Review of Systems All other systems reviewed negative except as stated in HPI PMFSH - History History Provided By: Patient, Medical Record - Medical History Medical History: Medical History (Last Reviewed 08/27/18 @ 09:05 by Aashish Aguillon MD) Patient denies medical problems Rotator cuff arthropathy Bipolar disorder - Surgical History Surgical History: Surgical History (Last Reviewed 08/27/18 @ 09:05 by Aashish Aguillon MD) H/O knee surgery - Family History Family History: Family History (Last Reviewed 08/27/18 @ 09:05 by Aashish Aguillon MD) Father Heart disease Mother Stroke - Social History I have reviewed the patient's Social History: Yes - Tobacco History Second Hand Smoke Exposure: Yes Tobacco Use In Past 30 Days: Yes Smoking Status: Current every day smoker Tobacco Type: Cigarettes - Alcohol History How Often Do You Have a Drink Containing Alcohol: 2 to 3 times a week - Substance Use History Substance History: Past History - Substance Use Type Marijuana Status: Active Route Used: Inhalation Reason for Use: Feels Good Comment: TOX SCREEN POSITIVE FOR CANNIBUS - Travel History Recent Travel in the [place] Within the Last 8 Weeks: No Recent Travel Out of the Country Within the Last 8 Weeks: No - Immunization History Tetanus Immunization: Unable to Assess Hx Influenza Vaccine This Season: No Medications and Allergies Active Medications: Active Medications Acetaminophen (Tylenol) 650 mg PO Q4H PRN PRN Reason: PAIN 1-10 AND/OR FEVER >101F Last Admin: 08/27/18 04:56 Dose: 650 mg Al Hydrox/Mg Hydrox/Simethicone (Mag-Al Plus Susp Liq) 30 ml PO Q6H PRN PRN Reason: DYSPEPSIA Al Hydroxide/Mg Hydroxide (Milk Of Magnesia Liq) 30 ml PO Q12H PRN PRN Reason: Mild Constipation Amlodipine Besylate (Norvasc) 5 mg PO DAILY PENDING SALE TO [facility] Last Admin: 08/27/18 08:50 Dose: 5 mg Aripiprazole (Abilify) 15 mg PO DAILY PENDING SALE TO [facility] Last Admin: 08/27/18 08:50 Dose: 15 mg Aspirin (Ecotrin) 81 mg PO DAILY PENDING SALE TO [facility] Last Admin: 08/27/18 08:50 Dose: 81 mg Bisacodyl (Dulcolax Supp) 10 mg RECTAL DAILY PRN PRN Reason: SEVERE CONSITIPATION Nitroglycerin (Nitrostat Sl) 0.4 mg SL Q5M PRN PRN Reason: CHEST PAIN Sennosides (Senokot) 17.2 mg PO Q12H PRN PRN Reason: Moderate Constipation Last Admin: 08/25/18 02:39 Dose: 17.2 mg Allergies Allergy/AdvReac Type Severity Reaction Status Date / Time haloperidol Allergy Severe TOUNGE Verified 07/18/18 19:49 SWELLS Home Medications Medication Instructions Recorded Confirmed Type No Known Home Medications 08/24/18 08/24/18 History Exam Vital signs: Vital Signs 08/26/18 17:06 08/26/18 23:18 08/27/18 05:40 Temperature 98.3 F 98.0 F 98.5 F Pulse Rate 77 80 85 Respiratory Rate 18 18 17 Blood Pressure 150/90 H 130/90 149/82 H Pulse Oximetry 98 99 100 Intake & Output 08/26/18 08/27/18 08/27/18 18:59 06:59 18:59 Other: Date of Last Bowel Movement 08/25/18 08/25/18 Mental Status Examination Appearance: Other (Fair) Consciousness: Alert Orientation: Person, Place (At least) Motor Activity: Normal gait Speech: Pressured, Rapid Language: Other (Rambling) Fund of Knowledge: Adequate Attention and Concentration: Easily distracted Memory: Unremarkable Mood: Other (Remains elevated) Affect: Other (Expansive) Thought Process & Associations: Loose associations Thought Content: Delusional Hallucination Type: None Delusion Type: Other (Taoist) Suicidal Ideation: No Suicidal Plan: No Suicidal Intention: No Homicidal Ideation: No Homicidal Plan: No Homicidal Intention: No Insight: Poor Judgment: Poor (And impulsive) Assessment and Plan - Assessment (1) Bipolar affective disorder, currently manic, severe, with psychotic features Code(s): F31.2 - Bipolar disorder, current episode manic severe with psychotic features Status: Acute (2) Marijuana use Code(s): F12.90 - Cannabis use, unspecified, uncomplicated Status: Acute - Plan Plan: Patient does meet criteria for involuntary psychiatric hospitalization on the Last act. Thus I will cosign second opinion petition supporting Last act Justification for Continued Inpatient Stay: At this time patient would decompensate if placed in a lower level of care Discharge Planning: To be determined Request Healthcare Surrogate/Guardian Advocate?: Yes
--- NOTE | 2018-08-27 10:05 | P.PNPSY ---
Subjective Chief Complaint: Nano Remarks: Patient seen and examined. Chart reviewed. Case discussed with nursing staff. On my examination today, patient is a little less manicky. His confucianist delusions are decreasing. He remains a little fidgety and hyperkinetic. Speech is less rapid and less cluttered. He is somewhat discharge focused. He denies side effects from medications. He would like to divide Abilify so part of the dose is available at HS. I will accommodate this request, although I did educate patient that Abilify is usually a once-a-day medication. No physical complaints. Vital Signs Temp Pulse Resp BP Pulse Ox 08/27/18 05:40 98.5 F 85 17 149/82 H 100 08/26/18 23:18 98.0 F 80 18 130/90 99 08/26/18 17:06 98.3 F 77 18 150/90 H 98 Intake and Output 08/26/18 08/27/18 08/27/18 22:59 06:59 14:59 Other: Date of Last Bowel Movement 08/25/18 08/25/18 Labs reviewed. No new labs. Review of Systems All other systems reviewed negative except as stated in HPI Mental Status Examination Appearance: Appropriate Consciousness: Alert Orientation: Person, Place (At least) Motor Activity: Normal gait, Other (No motor abnormalities noted) Speech: Other (Rate is normalizing but still somewhat rapid) Language: Other (A little less rambling) Fund of Knowledge: Adequate Attention and Concentration: Easily distracted Memory: Unremarkable Mood: Other (Less elevated) Affect: Other (Less expansive) Thought Process & Associations: Loose associations (More focused today) Thought Content: Delusional Hallucination Type: None Delusion Type: Other (Jehovah'S Witness, decreasing) Suicidal Ideation: No Homicidal Ideation: No Insight: Poor Judgment: Poor Assessment and Plan - Assessment (1) Bipolar affective disorder, currently manic, severe, with psychotic features Code(s): F31.2 - Bipolar disorder, current episode manic severe with psychotic features Status: Acute (2) Marijuana use Code(s): F12.90 - Cannabis use, unspecified, uncomplicated Status: Acute - Plan Plan: Titrate Abilify to 15 mg in the morning and 5 mg at bedtime, dividing the dose per patient preference. Hospitalist input noted and appreciated. I note that hospitalist has added amlodipine for hypertension. Continue to monitor on the inpatient unit. Continue other medications and care as ordered. Justification for Continued Inpatient Stay: Medication changes. Impairment in reality construction. High risk for decompensation in less restrictive environment. Discharge Planning: Pending psychiatric stabilization Request Healthcare Surrogate/Guardian Advocate?: Yes
[2018-08-27] MEDS ORDERED: ARIPiprazole 5 MG Tablet PO SCH (21:00)
[2018-08-28] MEDS: Acetaminophen 325 MG Tablet PO PRN ×2 (02:11→20:10)
[2018-08-28] MEDS: amLODIPine 5 MG Tablet PO SCH (08:37)
--- NOTE | 2018-08-28 10:44 | P.PNPSY ---
Subjective Chief Complaint: Nano Remarks: Patient seen and examined with counselor and nurse. Chart reviewed. Case discussed with nursing staff who reports patient remains a little disorganized at times. Case discussed in treatment team. On my examination today, patient displays affective lability and irritability. He becomes easily agitated. He continues to have poor insight into the circumstances that brought him into the hospital. He is significantly less religiously preoccupied, and his mood does seem to be slowly stabilizing. No side effects from medications. Complains of some right knee pain, chronic, and I will ask the hospitalist to follow up on this. No other physical complaints. Vital Signs Temp Pulse Resp BP Pulse Ox 08/28/18 06:19 98.2 F 84 16 128/69 97 08/27/18 17:43 98.8 F 80 17 135/73 98 Labs reviewed. No new labs. Review of Systems All other systems reviewed negative except as stated in HPI (Limitation: Poor historian) Mental Status Examination Appearance: Appropriate Consciousness: Alert Orientation: Person, Place (At least) Motor Activity: Normal gait, Other (No abnormal motor movements noted) Speech: Unremarkable Language: Other (Only mildly rambling) Fund of Knowledge: Adequate Attention and Concentration: Easily distracted Memory: Unremarkable Mood: Irritable Affect: Irritable, Labile (Mild) Thought Process & Associations: Circumstantial Thought Content: Preoccupations Hallucination Type: None Delusion Type: None Suicidal Ideation: No Homicidal Ideation: No Insight: Poor Judgment: Poor Assessment and Plan - Assessment (1) Bipolar affective disorder, currently manic, severe, with psychotic features Code(s): F31.2 - Bipolar disorder, current episode manic severe with psychotic features Status: Acute (2) Marijuana use Code(s): F12.90 - Cannabis use, unspecified, uncomplicated Status: Acute - Plan Plan: Titrate Abilify to 15mg in the morning and 10mg at bedtime to target residual psychiatric symptoms. Hospitalist consultation as noted above. Counselor to try to obtain collateral re: baseline. Continue to monitor on the inpatient unit. Continue other medications and care as ordered. Justification for Continued Inpatient Stay: Medication changes. High risk for decompensation in less restrictive environment. Discharge Planning: Pending psychiatric stabilization. Request Healthcare Surrogate/Guardian Advocate?: No
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
[2018-08-28] MEDS: Lidocaine 5% Patch T-DERMAL SCH (14:49)
[2018-08-28] MEDS: ARIPiprazole 5 MG Tablet PO SCH (20:06)
[2018-08-29] MEDS: Acetaminophen 325 MG Tablet PO PRN ×2 (04:21→14:28)
[2018-08-29] MEDS: amLODIPine 5 MG Tablet PO SCH (08:53)
[2018-08-29] MEDS: Lidocaine 5% Patch T-DERMAL SCH (08:54)
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
--- NOTE | 2018-08-29 17:19 | P.PNPSY ---
Subjective Chief Complaint: Nano Remarks: Reviewed electronic medical records and discussed case with staff. Follow-up was conducted in the hallway with LANEY Oh present. His nurse reports that he was reported to be intrusive last night and has had some slight med seeking behavior. He seems to be watching the clock for his Lortab. Otherwise he has been compliant with his medications and had no behavioral disturbances. Patient states that he slept well and has a good appetite. He reports his mood is good. He does however state that his "girlfriend is being discharged from the hospital and I am the one that takes care of her". I explained that I was not comfortable discharging him today and that he would have to talk to his psychiatrist on Friday. Mental Status Examination Appearance: Appropriate Consciousness: Alert Orientation: Person, Place (At least) Motor Activity: Normal gait, Other (No abnormal motor movements noted) Speech: Unremarkable Language: Other (Only mildly rambling) Fund of Knowledge: Adequate Attention and Concentration: Easily distracted Memory: Unremarkable Mood: Irritable Affect: Irritable, Labile (Mild) Thought Process & Associations: Circumstantial Thought Content: Preoccupations Hallucination Type: None Delusion Type: None Suicidal Ideation: No Suicidal Plan: No Suicidal Intention: No Homicidal Ideation: No Homicidal Plan: No Homicidal Intention: No Insight: Poor Judgment: Poor Assessment and Plan - Assessment (1) Bipolar affective disorder, currently manic, severe, with psychotic features Code(s): F31.2 - Bipolar disorder, current episode manic severe with psychotic features Status: Acute - Plan Plan: Patient will be reevaluated by the attending psychiatrist. Continue with current treatment plan. Justification for Continued Inpatient Stay: Moving this patient to a less restrictive environment would likely result in decompensation. Request Healthcare Surrogate/Guardian Advocate?: No
[2018-08-29] MEDS: ARIPiprazole 5 MG Tablet PO SCH (22:36)
[2018-08-30] MEDS: amLODIPine 5 MG Tablet PO SCH (08:19)
[2018-08-30] MEDS: Lidocaine 5% Patch T-DERMAL SCH (08:20)
[2018-08-30] MEDS: Acetaminophen 325 MG Tablet PO PRN ×2 (09:23→20:13)
--- NOTE | 2018-08-30 14:24 | P.PNPSY ---
Subjective Chief Complaint: Nano Remarks: Reviewed electronic record and discussed with nursing staff. Rounded with LANEY Oh. Patient is very cooperative and pleasant. Endorses that he is less depressed and his mood has improved. Complaining of a minor cough and asking for Robitussin. Sleeping and eating well. Denies SI/HI. Review of Systems All other systems reviewed negative except as stated in HPI Mental Status Examination Appearance: Appropriate Consciousness: Alert Orientation: Person, Place (At least) Motor Activity: Normal gait, Other (No abnormal motor movements noted) Speech: Unremarkable Language: Other (Only mildly rambling) Fund of Knowledge: Adequate Attention and Concentration: Easily distracted Memory: Unremarkable Mood: Irritable Affect: Irritable, Labile (Mild) Thought Process & Associations: Circumstantial Thought Content: Preoccupations Hallucination Type: None Delusion Type: None Suicidal Ideation: No Suicidal Plan: No Suicidal Intention: No Homicidal Ideation: No Homicidal Plan: No Homicidal Intention: No Insight: Poor Judgment: Poor Assessment and Plan - Assessment (1) Bipolar affective disorder, currently manic, severe, with psychotic features Code(s): F31.2 - Bipolar disorder, current episode manic severe with psychotic features Status: Acute - Plan Plan: Patient will be reevaluated by the attending psychiatrist. Continue with current treatment plan. Justification for Continued Inpatient Stay: Moving patient to a less retrictive environment may result in his decompensation. Request Healthcare Surrogate/Guardian Advocate?: No
[2018-08-30] MEDS: ARIPiprazole 5 MG Tablet PO SCH (20:14)
[2018-08-30 21:52] LABS: Baso % (Auto) 0.6 % (0.0-2.0); Eos # (Auto) 0.1 th/mm3 (0.0-0.4); Eos % (Auto) 1.9 % (0.0-4.0); Hematocrit 38.3 % (39.0-51.0); Hemoglobin 13.2 gm/dL (13.0-17.0); Lymph % (Auto) 25.5 % (9.0-44.0); Mean Corpuscular HGB Conc 34.4 % (32.0-36.0); Mean Corpuscular Hemoglobin 32.8 pg (27.0-34.0); Mean Corpuscular Volume 95.5 fL (80.0-100.0); Mean Platelet Volume 8.4 fL (7.0-11.0); Mono # (Auto) 0.6 th/mm3 (0.0-0.9); Mono % (Auto) 13.4 % (0.0-8.0); Neut # (Auto) 2.4 th/mm3 (1.8-7.7); Neut % (Auto) 58.6 % (16.0-70.0); Platelet Count 155 th/mm3 (150-450); Red Blood Count 4.01 mil/mm3 (4.50-5.90); Red Cell Distribution Width 14.2 % (11.6-17.2); White Blood Count 4.1 th/mm3 (4.0-11.0)
[2018-08-30 22:13] LABS: Alanine Aminotransferase 53 U/L (12-78); Albumin 3.8 g/dL (3.4-5.0); Anion Gap 6 meq/L (5-15); Aspartate Aminotransferase 38 U/L (15-37); Blood Urea Nitrogen 15 mg/dL (7-18); Calcium 8.9 mg/dL (8.5-10.1); Carbon Dioxide 28.2 meq/L (21.0-32.0); Chloride 102 meq/L (98-107); Glomerular Filtration Rate 80 mL/min (>89); Glucose,Random 110 mg/dL (74-106); Potassium 4.6 meq/L (3.5-5.1); Sodium 136 meq/L (136-145)
[2018-08-30 22:15] LABS: Alkaline Phosphatase 75 U/L (45-117); Total Protein 7.3 g/dL (6.4-8.2)
[2018-08-31 00:20] LABS: Bacteria,Urine Rare /hpf; Bilirubin,Urine Negative (Negative); Clarity,Urine Clear (Clear); Color,Urine Yellow (Yellw/Straw); Glucose,Urine (UA) Negative (Negative); Leukocyte Esterase,Urine Negative (Negative); Mucus,Urine Few /lpf (Occasional); Nitrite,Urine Negative (Negative); Squamous Epithelial Cell,Urine <1 /hpf (0-5)
[2018-08-31] MEDS: amLODIPine 5 MG Tablet PO SCH (08:38)
[2018-08-31] MEDS: Lidocaine 5% Patch T-DERMAL SCH (08:52)
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
--- NOTE | 2018-08-31 13:05 | XR ---
EXAM DATE: 08/31/2018 12:32 PM EST AGE/SEX: 62 years / Male INDICATIONS: Cough. CLINICAL DATA: This is the patient's subsequent encounter. Patient reports that signs and symptoms h ave been present for 1 day and indicates a pain score of 0/10. MEDICAL/SURGICAL HISTORY: None. None. [place] [facility] [place]. . FINDINGS: A single AP view of the chest demonstrates the lungs to be symmetrically aerated without evidence of mass, infiltrate or effusion. The cardiomediastinal contours are unremarkable. Osseous structures a re intact. CONCLUSION: No evidence of acute cardiopulmonary process. Electronically signed by: Jey Barragan MD 08/31/2018 1:04 PM EST
[2018-08-31 15:29] LABS: Mean Corpuscular HGB Conc 33.4 % (32.0-36.0); Mean Corpuscular Volume 98.7 fL (80.0-100.0); Platelet Count 146 th/mm3 (150-450); Red Blood Count 3.95 mil/mm3 (4.50-5.90); Red Cell Distribution Width 14.4 % (11.6-17.2); White Blood Count 5.3 th/mm3 (4.0-11.0)
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
[2018-08-31 17:29] LABS: Eosinophils 1 % (0-4); Lymphocytes 39 % (9-44); Monocytes 15 % (0-8); Plasma Cells 3 % (0-0)
[2018-08-31 17:31] LABS: Platelet Estimate Normal (Normal); Platelet Morphology Normal (Normal)
[2018-08-31] MEDS: ARIPiprazole 5 MG Tablet PO SCH (20:43)
[2018-08-31 20:48] VITALS: BP 133/67; PULSE 77; RESP 17; TEMP 98.8; O2SAT 95
== END 2018-08-31 20:55 | disposition home or self-care (01) ==
LOC: NEPD 12:02 → NEDA 18:04 → H270 19:01
PROVIDERS: ADMIT Psychiatry & Neurology Psychiatry; ATTEND Psychiatry & Neurology Psychiatry